=== PATIENT | male | born 1990 | race Caucasian/White ===

== ENCOUNTER 2024-11-14 11:33 | Outpatient (CLI) | payer OTHER | END 2024-11-14 11:34 | disposition home or self-care (01) | LOC: BICRAD 11:33 | PROVIDERS: ATTEND Nurse Practitioner Family | DX: Z04.1 Encounter for examination and observation following transport accident (principal); V89.2XXD Person injured in unspecified motor-vehicle accident, traffic, subsequent encounter | CPT/HCPCS: 72110 ==